=== PATIENT | female | born 1965 | race American Indian/Alaskan Native ===

== ENCOUNTER 2017-10-28 09:18 | Emergency (ER) | payer OTHER ==
[2017-10-28 09:57] LABS: Alanine Aminotransferase 20 units/L (7-56); BUN/Creatinine Ratio 10; Blood Urea Nitrogen 8 mg/dL (7-17); Calcium 9.3 mg/dL (8.4-10.2); Hemolysis Index 3
[2017-10-28 10:44] LABS: Bacteria,Urine 1+ /HPF (Negative); Bilirubin,Urine NEG (Negative); Blood,Urine MOD (Negative); Color,Urine Yellow (Yellow); Mucus,Urine FEW /HPF; Urobilinogen,Urine < 2.0 mg/dL (<2.0)
[2017-10-28 10:55] LABS: Basophils % (Auto) 0.9 % (0.0-1.8); Eosinophils # (Auto) 0.1 K/mm3 (0.0-0.4); Eosinophils % (Auto) 1.8 % (0.0-4.3); Hematocrit 40.7 % (30.3-42.9); Hemoglobin 13.4 gm/dl (10.1-14.3); Lymphocytes # (Auto) 1.9 K/mm3 (1.2-5.4); Lymphocytes % (Auto) 40.5 % (13.4-35.0); Mean Corpuscular HGB Conc 33 % (30-34); Mean Corpuscular Hemoglobin 29 pg (28-32); Mean Corpuscular Volume 87 fl (79-97); Monocytes # (Auto) 0.5 K/mm3 (0.0-0.8); Monocytes % (Auto) 9.9 % (0.0-7.3); Platelet Count 308 K/mm3 (140-440); Red Blood Count 4.68 M/mm3 (3.65-5.03); Red Cell Distribution Width 13.4 % (13.2-15.2)
--- NOTE | 2017-10-28 15:43 | Emergency Department Report ---
ED Abdominal Pain HPI - General Chief Complaint: Abdominal Pain Stated Complaint: ABDOMINAL PAIN Time Seen by Provider: 10/28/17 15:43 Source: patient Mode of arrival: Ambulatory Limitations: No Limitations - History of Present Illness Initial Comments: Patient is a 52-year-old female that presented to ER with complaints of abdominal pain 1 week. Patient complains of nausea at times. Patient denies vomiting, diarrhea, painful urination, vaginal bleeding and discharge. Patient states that she has dark stool. Patient denies constipation. MD Complaint: abdominal pain -: Sudden Location: LLQ Radiation: none Migration to: no migration Severity scale (0 -10): 4 Quality: aching Consistency: constant Improves With: rest Worsens With: movement Context: sick contacts (grandkids have nausea/vomiting and GI virus) Associated Symptoms: nausea Treatments Prior to Arrival: NSAIDs - Related Data Home Medications Medication Instructions Recorded Confirmed Last Taken Cholecalciferol Vit D3 [Vitamin D3] 1,000 unit PO QDAY 02/27/15 02/27/15 Unknown Hydrochlorothiazide [Hctz] 12.5 mg PO QDAY 02/27/15 02/27/15 Unknown Previous Rx's Medication Instructions Recorded Last Taken Type Ondansetron [Zofran Odt] 4 mg PO Q8HR PRN #20 tab.rapdis 10/28/17 Unknown Rx Allergies Allergy/AdvReac Type Severity Reaction Status Date / Time erythromycin base Allergy Anaphylaxis Verified 02/27/15 04:47 ibuprofen Allergy Swelling Verified 02/27/15 04:47 sulfamethoxazole Allergy Anaphylaxis Verified 02/27/15 04:47 [From Bactrim] trimethoprim [From Bactrim] Allergy Anaphylaxis Verified 02/27/15 04:47 ED Review of Systems ROS: Stated complaint: ABDOMINAL PAIN Other details as noted in HPI Comment: All other systems reviewed and negative Constitutional: denies: chills, fever Eyes: denies: eye pain, eye discharge, vision change ENT: denies: ear pain, throat pain Respiratory: denies: cough, shortness of breath, wheezing Cardiovascular: denies: chest pain, palpitations Endocrine: no symptoms reported Gastrointestinal: abdominal pain, nausea. denies: diarrhea Genitourinary: denies: urgency, dysuria, discharge Musculoskeletal: denies: back pain, joint swelling, arthralgia Skin: denies: rash, lesions Neurological: denies: headache, weakness, paresthesias Psychiatric: denies: anxiety, depression Hematological/Lymphatic: denies: easy bleeding, easy bruising ED Past Medical Hx - Past Medical History Previous Medical History?: Yes Hx Hypertension: Yes Hx Asthma: Yes Additional medical history: hiatal hernia - Surgical History Past Surgical History?: Yes Additional Surgical History: hysterectomy. bilateral carpal tunnel. bilateral bunectomy - Social History Smoking Status: Never Smoker Substance Use Type: None - Medications Home Medications: Home Medications Medication Instructions Recorded Confirmed Last Taken Type Cholecalciferol Vit D3 [Vitamin D3] 1,000 unit PO QDAY 02/27/15 02/27/15 Unknown History Hydrochlorothiazide [Hctz] 12.5 mg PO QDAY 02/27/15 02/27/15 Unknown History Ondansetron [Zofran Odt] 4 mg PO Q8HR PRN #20 tab.rapdis 10/28/17 Unknown Rx ED Physical Exam - General Limitations: No Limitations General appearance: alert, in no apparent distress - Head Head exam: Present: atraumatic, normocephalic - Eye Eye exam: Present: normal appearance - ENT ENT exam: Present: mucous membranes moist - Neck Neck exam: Present: normal inspection - Respiratory Respiratory exam: Present: normal lung sounds bilaterally. Absent: respiratory distress - Cardiovascular Cardiovascular Exam: Present: regular rate, normal rhythm. Absent: systolic murmur, diastolic murmur, rubs, gallop - GI/Abdominal GI/Abdominal exam: Present: soft, tenderness (left lower quadrant), normal bowel sounds - Extremities Exam Extremities exam: Present: normal inspection - Back Exam Back exam: Present: normal inspection - Neurological Exam Neurological exam: Present: alert, oriented X3 - Psychiatric Psychiatric exam: Present: normal affect, normal mood - Skin Skin exam: Present: warm, dry, intact, normal color. Absent: rash ED Course Vital Signs 10/28/17 10/28/17 10/28/17 09:24 12:25 14:41 Temperature 98.1 F Pulse Rate 86 79 82 Respiratory 18 16 17 Rate Blood Pressure 136/80 Blood Pressure 132/77 122/80 [Left] O2 Sat by Pulse 100 100 100 Oximetry ED Medical Decision Making - Lab Data Result diagrams: 10/28/17 09:30 10/28/17 12:57 Negative urine hCG - Medical Decision Making Patient stable for discharge. All results given to patient - Differential Diagnosis gastroenteritis. Diverticulitis. UTI Critical care attestation.: If time is entered above; I have spent that time in minutes in the direct care of this critically ill patient, excluding procedure time. ED Disposition Clinical Impression: Abdominal pain, Gastroenteritis Disposition: TO HOME OR SELFCARE Is pt being admited?: No Does the pt Need Aspirin: No Condition: Stable Instructions: Abdominal Pain (ED), Gastroenteritis (ED) Additional Instructions: Patient to follow up with primary care in 3-5 days. Patient to return to ER if condition worsens. Patient take Tylenol when necessary for pain. Patient take meds as directed. Patient to increase water. Patient to rest. Patient to start a [place] diet Prescriptions: Ondansetron [Zofran Odt] 4 mg PO Q8HR PRN #20 tab.rapdis PRN Reason: Nausea And Vomiting Referrals: PRIMARY CARE,MD [Primary Care Provider] - 3-5 Days Time of Disposition: 17:01
--- NOTE | 2017-10-28 16:19 | Cat Scan Report ---
FINAL REPORT EXAM: CT ABDOMEN PELVIS WO CON HISTORY: ABD PAIN TECHNIQUE: CT examination of the ABDOMEN without IV contrast CT examination of the PELVIS without IV contrast PRIORS: None. FINDINGS: Normal noncontrast appearance of the liver, adrenals, pancreas, and spleen. Normal caliber abdominal aorta and IVC. No retroperitoneal adenopathy. No evidence of mesenteric mass. No renal calculus or hydronephrosis. Small fat containing umbilical hernia. There is also a short segment of normal caliber normal-appearing small bowel in the herniated contents. No CT evidence of intestinal obstructive pattern. Normal-appearing stomach and duodenum. No small bowel distention in the abdomen and pelvis. No pelvic free fluid. Normal-appearing urinary bladder and rectum. Uterus not visible. No adnexal abnormality.. No gross ascites, free air, or colonic distention. Normal-appearing cecum, terminal ileum, and appendix. Slight proximal sigmoid colon diverticulosis without CT evidence of acute inflammation IMPRESSION: Slight proximal sigmoid colon diverticulosis without CT evidence of acute inflammation Small fat containing umbilical hernia also contains a short segment of normal caliber normal-appearing small bowel
[2017-10-28 16:23] LABS: Alanine Aminotransferase 19 units/L (7-56); Albumin 3.5 g/dL (3.9-5); BUN/Creatinine Ratio 9; Blood Urea Nitrogen 7 mg/dL (7-17); Calcium 9.1 mg/dL (8.4-10.2); Hemolysis Index 7
[2017-10-28 18:30] VITALS: BP 113/74
== END 2017-10-28 18:10 | disposition home or self-care (01) ==
LOC: ED 09:18
DX: K52.9 Noninfective gastroenteritis and colitis, unspecified (principal); R10.9 Unspecified abdominal pain; I10 Essential (primary) hypertension; J45.909 Unspecified asthma, uncomplicated
CPT/HCPCS: 36415; 74176; 80053; 81001; 85025